=== PATIENT | female | born 1990 | race Caucasian/White ===

== ENCOUNTER → 2016-08-17 | Outpatient (REF) | payer BC | LOC: M SFHCWAGY 14:27 | PROVIDERS: ATTEND Nurse Practitioner Women's Health | DX: R87.810 Cervical high risk human papillomavirus (HPV) DNA test positive (principal); R87.612 Low grade squamous intraepithelial lesion on cytologic smear of cervix (LGSIL) ==

== ENCOUNTER → 2018-01-12 | Outpatient (REF) | payer BC | LOC: M SFHCWAGY 08:48 | DX: Z12.4 Encounter for screening for malignant neoplasm of cervix (principal) | CPT/HCPCS: G0123 ==

== ENCOUNTER → 2018-04-04 | Outpatient (REF) | payer BC | LOC: M SFHCWAGY 15:19 | DX: R87.612 Low grade squamous intraepithelial lesion on cytologic smear of cervix (LGSIL) (principal) | CPT/HCPCS: 88304 ==

== ENCOUNTER → 2019-06-14 | Outpatient (REF) | payer BC ==
[2019-06-16 14:12] LABS: HPV HYBRID CAPTURE II Negative (Negative)
== END ==
LOC: M SFHCWAGY 09:02
PROVIDERS: ATTEND Nurse Practitioner Women's Health
DX: Z12.4 Encounter for screening for malignant neoplasm of cervix (principal); A59.9 Trichomoniasis, unspecified

== ENCOUNTER → 2020-01-19 | Outpatient (CLI) | payer BC ==
--- NOTE | 2020-01-19 12:05 | REP ---
PELVIC ULTRASOUND: Real-time sonographic evaluation of pelvis performed utilizing transabdominal and endovaginal technique. Bladder measures 3.8 x 4.7 cm. Uterus measures 7.8 x 4.0 x 4.7 cm. Endometrial thickness is 8 mm. There is no endometrial fluid collection. Right ovary measures 2.8 x 2.2 x 1.9 cm and left ovary 3.5 x 1.9 x 2.7 cm. Complex dominant follicle of the left ovary measures 2 cm in maximum diameter. There is no evidence of ovarian torsion bilaterally, blood flow is seen in each ovary with duplex Doppler evaluation. There is no other evidence of mass or free fluid. IMPRESSION: Negative pelvic ultrasound.
== END ==
LOC: M WHC 09:16
PROVIDERS: ATTEND Nurse Practitioner Women's Health
DX: N83.201 Unspecified ovarian cyst, right side (principal)